=== PATIENT | male | born 1940 | race Caucasian/White ===

== ENCOUNTER → 2018-11-08 | Outpatient (CLI) | payer MEDICARE | END | disposition home or self-care (01) | LOC: PLD 08:09 → LAB SHORT 08:09 | DX: L57.0 Actinic keratosis (principal) | CPT/HCPCS: 88305 ==

== ENCOUNTER 2019-02-22 13:48 | Observation (INO) | payer OTHER ==
[~2019-02-22] VITALS: Ht 172.7 cm; Wt 64.6 kg
[2019-02-22] MEDS ORDERED: DILTIAZEM HCL PO (13:59)
[2019-02-22] MEDS ORDERED: DIGOX125 MCG PO (14:00)
[2019-02-22] MEDS ORDERED: ATOR20 PO (14:00)
[2019-02-22] MEDS ORDERED: HYDCHL25 PO (14:01)
[2019-02-22] MEDS ORDERED: LISI20 PO (14:01)
[2019-02-22] MEDS ORDERED: WARF5 PO (14:02)
[2019-02-22 14:13] LABS: BASOPHILS ABSOLUTE AUTO 0.02 K/mm3 (0.00-0.23); BASOPHILS PERCENT AUTO 0 % (0-2); EOSINOPHILS ABSOLUTE AUTO 0.02 K/mm3 (0.00-0.68); EOSINOPHILS PERCENT AUTO 0 % (0-6); Hematocrit 41.3 % (37.0-53.0); Hemoglobin 14.4 g/dL (13.5-17.5); IMMATURE GRAN ABSOLUTE AUTO 0.04 K/mm3 (0.00-0.10); IMMATURE GRAN PERCENT AUTO 0 % (0-1); LYMPHOCYTES ABSOLUTE AUTO 0.82 K/mm3 (0.84-5.20); LYMPHOCYTES PERCENT AUTO 7 % (21-46); MONOCYTES ABSOLUTE AUTO 0.95 K/mm3 (0.16-1.47); MONOCYTES PERCENT AUTO 8 % (4-13); Mean Corpuscular HGB Conc 34.9 g/dL (31.5-36.5); Mean Corpuscular Volume 97 fL (80-100); Mean Platelet Volume 9.3 fL (9.1-12.4); NEUTROPHILS ABSOLUTE AUTO 9.84 K/mm3 (1.96-9.15); NEUTROPHILS PERCENT AUTO 84 % (41-73); Platelet Count 240 K/mm3 (150-400); RDW Standard Deviation 46.4 fL (35.1-46.3); Red Blood Cell Count 4.24 M/mm3 (4.30-5.90); White Blood Cell Count 11.69 K/mm3 (4.00-11.30)
[2019-02-22 14:31] LABS: International Normalized Ratio 2.29; Prothrombin Time Results 22.5 Sec (9.7-11.5)
[2019-02-22 14:39] LABS: Alanine Aminotransfer (ALT/SGP 25 U/L (12-78); Albumin, Blood 3.8 g/dL (3.4-5.0); Albumin/Globulin Ratio 1.2 (0.8-1.8); Alk Phos 64 U/L (50-136); Anion Gap 7 mmol/L (6-16); Aspartate Aminotrans (AST/SGOT 23 U/L (12-37); Bilirubin, Total 0.8 mg/dL (0.1-1.0); Blood Urea Nitrogen 19 mg/dL (8-24); Bun/Creatinine Ratio 15.2 (12.0-20.0); CO2, Blood 27 mmol/L (21-32); Chloride, Blood 99 mmol/L (98-108); Creatinine, Blood 1.25 mg/dL (0.60-1.20); Globulin, Blood 3.3 g/dL (2.2-4.0); Glomerular Filtration Rate 59 (60-); Glucose, Blood 104 mg/dL (70-99); Potassium, Blood 4.2 mmol/L (3.5-5.5); Sodium, Blood 133 mmol/L (136-145); Total Protein, Blood 7.1 g/dL (6.4-8.2); Troponin I <0.015 ng/mL (0.000-0.040)
[2019-02-22 15:37] LABS: Digoxin (Lanoxin) 0.82 ug/mL (0.80-2.00)
[2019-02-22 17:18] LABS: Influenza A Negative (NEGATIVE); Influenza B Negative (NEGATIVE)
[2019-02-22] MEDS ORDERED: WARF2.5 PO (17:54)
[2019-02-22] MEDS ORDERED: THERA-D2000 UNIT PO (17:56)
[2019-02-22] MEDS ORDERED: THERA1 EACH PO (17:56)
[2019-02-22] MEDS ORDERED: [UNRECOGNIZED DRUG - OTHER] PO (17:57)
--- NOTE | 2019-02-22 19:52 | NUR ---
1835 RECEIVED PT TO RM 341 VIA W/C FROM ER. PT A&O, ABLE TO TX SELF TO BED. RECEIVED REPORT FROM BIBI GARCIA; PT SENT TO ER FROM [facility]. PT TO [place] FOR SYCOPE X2 IN THE SHOWER. PER REPORT, PT WITH ABRAISION TO L SHOULDER AND R SCAPULA. ADMITTED FOR OBS OVERNITE. PT ON COUMADIN FOR A-FIB; PHARMACY MANAGING COUMADIN. PT REPORTING SORE THROAT, SWOLLEN GLANDS. FLU SWAB DONE IN ER; NEG PER REPORT. REPORT GIVEN TO ONCOMING RN. CALL LT IN REACH. BED ALARM ON FOR SAFETY.
[2019-02-23 03:15] LABS: BASOPHILS ABSOLUTE AUTO 0.01 K/mm3 (0.00-0.23); BASOPHILS PERCENT AUTO 0 % (0-2); EOSINOPHILS ABSOLUTE AUTO 0.17 K/mm3 (0.00-0.68); EOSINOPHILS PERCENT AUTO 2 % (0-6); Hematocrit 39.3 % (37.0-53.0); Hemoglobin 13.5 g/dL (13.5-17.5); IMMATURE GRAN ABSOLUTE AUTO 0.02 K/mm3 (0.00-0.10); IMMATURE GRAN PERCENT AUTO 0 % (0-1); LYMPHOCYTES ABSOLUTE AUTO 1.58 K/mm3 (0.84-5.20); LYMPHOCYTES PERCENT AUTO 17 % (21-46); MONOCYTES ABSOLUTE AUTO 0.98 K/mm3 (0.16-1.47); MONOCYTES PERCENT AUTO 11 % (4-13); Mean Corpuscular HGB 33.6 pg (26.0-34.0); Mean Corpuscular HGB Conc 34.4 g/dL (31.5-36.5); Mean Corpuscular Volume 98 fL (80-100); Mean Platelet Volume 9.3 fL (9.1-12.4); NEUTROPHILS ABSOLUTE AUTO 6.42 K/mm3 (1.96-9.15); NEUTROPHILS PERCENT AUTO 70 % (41-73); Platelet Count 210 K/mm3 (150-400); RDW Standard Deviation 46.6 fL (35.1-46.3); Red Blood Cell Count 4.02 M/mm3 (4.30-5.90); White Blood Cell Count 9.18 K/mm3 (4.00-11.30)
[2019-02-23 03:29] LABS: Bun/Creatinine Ratio 18.3 (12.0-20.0); Calcium, Blood 8.4 mg/dL (8.5-10.1); Creatinine, Blood 1.26 mg/dL (0.60-1.20); Potassium, Blood 4.2 mmol/L (3.5-5.5)
[2019-02-23 03:30] LABS: International Normalized Ratio 2.42; Prothrombin Time Results 23.7 Sec (9.7-11.5)
--- NOTE | 2019-02-23 04:44 | NUR ---
STATOR CONNECTOR SUMMARY A/O X4. PLEASANT AND COOPERATIVE. FWW WITH STANDBY ASSIST WITH STEADY GAIT. DENIES PAIN, NAUSEA AND DIZZINIESS. AT BEDSIDE WITH PT IN THE BEGINNING OF SHIFT AND LEFT LATER IN THE NIGHT. BED ALARM ON. CALL LIGHT WITHIN REACH. NS RUNNING AT 75ML/HR. NEGATIVE TROPONIN X3. VITALS STABLE AND SLEPT WELL TONIGHT.
--- NOTE | 2019-02-23 14:37 | NUR ---
Echocardiogram completed.
[2019-02-24 05:39] LABS: International Normalized Ratio 2.75; Prothrombin Time Results 26.6 Sec (9.7-11.5)
--- NOTE | 2019-02-24 09:15 | NUR ---
PT PLEASANT COOP A/O STATES EAGER TO GO HOME. DENIES PAIN. H/R IRREGULAR. LOUD MURMER NOTED. PER TELE. AFIB AT 75, SEE SEPARATE NOTE ON LAST LIDYA RATES. PRESENT IN LOW 50'S WHILE ASLEEP. LUNGS CLEAR, RESP EASY, UNLABORED, ON R.A. BT X4 LAST BM LAST NITE. VOIDS PER BATHROOM, INDEPENDANT. BED IN LOW POSITION, CALL LITE IN REACH, CALLS APPROP
--- NOTE | 2019-02-24 10:51 | NUR ---
PT STATES DIGOXINE NOT TO BE 0.25 MG, SHOULD BE 0.[address] MARLOW. SORAIDA GIVE 0.125 AND CHANGE ORDER TO HOME DOSE. DONE
--- NOTE | 2019-02-24 10:58 | NUR ---
CALLED TELE. RATES DROPPED FROM MID 70'S YESTERDAY TO: 66 AT 21:30, 58 AT 23:45, 52 AT 24:15 HELD IN LOW 50'S LAST NITE UNTIL 6AM AT 54 THEN BACK UP AT 7AM AT 70. MAINTAINS AFIB T/OUT. CALLED DR MARLOW. GAVE ABOVE INFO. ALSO DISCUSSED PT STATES DOSE DIG SUPPOSED TO BE 0.125 NOT 0.25. DOSE CHANGE TO HOME DOSE.
[2019-02-24] MEDS ORDERED: Diltiazem ER60 MG PO (15:49)
--- NOTE | 2019-02-24 16:19 | NUR ---
IV PULLED INTACT. TELE REMOVED. DISCHARGE REVIEWED WITH PT. PT VERBALIZED UNDERSTANDING. HE READY TO D.C WHEN COMES BACK.
--- NOTE | 2019-02-24 17:56 | NUR ---
PT TO ROOM. WALKED OUT DOOR AT 2308
== END 2019-02-24 17:40 | disposition home or self-care (01) ==
LOC: ER 13:48 → MEDS 13:49 → ER 18:24 → MEDS 18:31
PROVIDERS: Emergency Medicine; Physician Assistant; ADMIT Internal Medicine
DX: R55 Syncope and collapse (principal); I35.0 Nonrheumatic aortic (valve) stenosis; I10 Essential (primary) hypertension; E78.5 Hyperlipidemia, unspecified; I48.20 Chronic atrial fibrillation, unspecified; E78.00 Pure hypercholesterolemia, unspecified; Z79.01 Long term (current) use of anticoagulants; Z79.899 Other long term (current) drug therapy
CPT/HCPCS: 36415; 71046; 80048; 80053; 80162; 84484; 85025; 85610; 87804; 93005; 93010; 93306; 96360; 96361; 97161; 97165; 97530; 99285-25; G0378; J7030

== ENCOUNTER 2019-05-20 06:22 | Day surgery (SDC) | payer OTHER ==
[~2019-05-20] VITALS: Ht 175.3 cm; Wt 68.0 kg
[~2019-05-20 06:22] MED LIST: ATOR20 PO; DIGOX125 MCG PO; DILTIAZEM HCL PO; Diltiazem ER60 MG PO; HYDCHL25 PO; LISI20 PO; THERA-D2000 UNIT PO; THERA1 EACH PO; WARF2.5 PO; WARF5 PO; [UNRECOGNIZED DRUG - OTHER] PO
[2019-05-20] MEDS ORDERED: THERA1 EACH PO (07:24)
[2019-05-20] MEDS ORDERED: Oyster Shell C500 MG PO (07:25)
[2019-05-20] MEDS ORDERED: VITAMIN D-40010 MC1 PO (07:27)
--- NOTE | 2019-05-20 12:27 | NUR ---
DISCHARGE GONE OVER WITH AND PT, BOTH VERBALIZE UNDERSTANDING OF INSTRUCTIONS. SALINE LOCK OUT WITH CATHETER INTACT. TR BAND OFF, NO BLEEDING NOTED. CLOTH DOT PLACED OVER RADIAL SITE. PT TO PRIVATE VEHICLE PER W/C.
== END 2019-05-20 12:00 | disposition home or self-care (01) ==
LOC: MHTC 06:22
PROC: B2111ZZ Fluoroscopy of Multiple Coronary Arteries using Low Osmolar Contrast (ICD-10-PCS; principal; 2019-05-20)
PROC: 4A023N7 Measurement of Cardiac Sampling and Pressure, Left Heart, Percutaneous Approach (ICD-10-PCS; principal; 2019-05-20)
DX: I35.0 Nonrheumatic aortic (valve) stenosis (principal); I25.10 Atherosclerotic heart disease of native coronary artery without angina pectoris; Q23.1 Congenital insufficiency of aortic valve; I10 Essential (primary) hypertension; I48.19 Other persistent atrial fibrillation; E78.5 Hyperlipidemia, unspecified; Z79.01 Long term (current) use of anticoagulants; Z79.899 Other long term (current) drug therapy; Z88.2 Allergy status to sulfonamides; Z88.1 Allergy status to other antibiotic agents; Z88.3 Allergy status to other anti-infective agents
CPT/HCPCS: 76937; 93005; 93010; 93454; 99152; 99153; C1769; C1894; J1644; J2250; J3010; J7030; Q9967

== ENCOUNTER 2020-01-03 17:27 | Inpatient (IN) | payer OTHER, MEDICARE ==
[~2020-01-03] VITALS: Ht 170.2 cm; Wt 66.9 kg
[~2020-01-03 17:27] MED LIST changes: +Oyster Shell C500 MG PO; +VITAMIN D-40010 MC1 PO
[2020-01-03] MEDS ORDERED: Hair, Skin & N1 EACH PO (18:17)
[2020-01-03] MEDS ORDERED: ATOR80 PO (18:17)
[2020-01-03] MEDS ORDERED: Aspirin EC81 MG PO (18:17)
[2020-01-03] MEDS ORDERED: DOCU100 PO (18:18)
[2020-01-03] MEDS ORDERED: Vitamin D2000 UNIT PO (18:18)
[2020-01-03] MEDS ORDERED: POTCHL20ER PO (18:18)
[2020-01-03] MEDS ORDERED: FURO40 PO (18:18)
[2020-01-03 18:19] LABS: BASOPHILS ABSOLUTE AUTO 0.04 K/mm3 (0.00-0.23); BASOPHILS PERCENT AUTO 0 % (0-2); EOSINOPHILS ABSOLUTE AUTO 0.07 K/mm3 (0.00-0.68); EOSINOPHILS PERCENT AUTO 0 % (0-6); Hematocrit 28.8 % (37.0-53.0); Hemoglobin 9.1 g/dL (13.5-17.5); IMMATURE GRAN ABSOLUTE AUTO 0.15 K/mm3 (0.00-0.10); IMMATURE GRAN PERCENT AUTO 1 % (0-1); LYMPHOCYTES ABSOLUTE AUTO 0.85 K/mm3 (0.84-5.20); LYMPHOCYTES PERCENT AUTO 5 % (21-46); MONOCYTES ABSOLUTE AUTO 0.93 K/mm3 (0.16-1.47); MONOCYTES PERCENT AUTO 5 % (4-13); Mean Corpuscular HGB 32.4 pg (26.0-34.0); Mean Corpuscular HGB Conc 31.6 g/dL (31.5-36.5); Mean Corpuscular Volume 103 fL (80-100); Mean Platelet Volume 9.2 fL (9.1-12.4); NEUTROPHILS PERCENT AUTO 88 % (41-73); Platelet Count 370 K/mm3 (150-400); RDW Coefficient Variation 15.2 % (11.7-14.2); RDW Standard Deviation 56.9 fL (35.1-46.3); Red Blood Cell Count 2.81 M/mm3 (4.30-5.90); White Blood Cell Count 17.44 K/mm3 (4.00-11.30)
[2020-01-03] MEDS ORDERED: MIRALAX17 GM PO (18:19)
[2020-01-03] MEDS ORDERED: WARF5 PO ×2 (18:20)
[2020-01-03 18:41] LABS: Alanine Aminotransfer (ALT/SGP 55 U/L (12-78); Albumin, Blood 2.9 g/dL (3.4-5.0); Albumin/Globulin Ratio 0.9 (0.8-1.8); Alk Phos 126 U/L (50-136); Anion Gap 6 mmol/L (6-16); Aspartate Aminotrans (AST/SGOT 40 U/L (12-37); Bilirubin, Total 0.3 mg/dL (0.1-1.0); Blood Urea Nitrogen 19 mg/dL (8-24); Bun/Creatinine Ratio 20.3 (12.0-20.0); CO2, Blood 26 mmol/L (21-32); Calcium, Blood 8.3 mg/dL (8.5-10.1); Chloride, Blood 105 mmol/L (98-108); Creatinine, Blood 0.93 mg/dL (0.60-1.20); Globulin, Blood 3.4 g/dL (2.2-4.0); Glomerular Filtration Rate >60 (60-); Glucose, Blood 114 mg/dL (70-99); Potassium, Blood 4.1 mmol/L (3.5-5.5); Sodium, Blood 137 mmol/L (136-145); Total Protein, Blood 6.3 g/dL (6.4-8.2); Troponin I 0.196 ng/mL (0.000-0.040)
[2020-01-03 19:03] LABS: International Normalized Ratio 2.28; Prothrombin Time Results 23.3 Sec (9.7-11.5)
[2020-01-03 19:16] LABS: Digoxin (Lanoxin) 0.14 ug/mL (0.80-2.00)
--- NOTE | 2020-01-04 00:30 | NUR ---
PT ADMITTED TO ROOM ICU 12 UNDER PCU STATUS AT 2338. PT ABLE TO STAND AND TRANSFER HIMSELF WITH ASSIST TO HELP HIM GET HIS FEET UP IN BED. PT ALERT AND ORIENTED. VERY GOOD HISTORIAN. PLEASANT AND COOPERATIVE WITH CARE AND ASSESSMENT. NO COMPLAINTS OF CHEST PAIN OR PRESSURE. PT HAS HEALING INCISIONS TO CHEST-STERNAL, AND CHEST AT LEFT UPPER - PACER, AND ABDOMINAL INCISION HEALING. WILL REVIEW CHART AND PLAN OF CARE FOR THIS PT.
[2020-01-04 03:23] LABS: BASOPHILS ABSOLUTE AUTO 0.03 K/mm3 (0.00-0.23); BASOPHILS PERCENT AUTO 0 % (0-2); EOSINOPHILS PERCENT AUTO 1 % (0-6); Hematocrit 26.8 % (37.0-53.0); Hemoglobin 8.6 g/dL (13.5-17.5); IMMATURE GRAN ABSOLUTE AUTO 0.11 K/mm3 (0.00-0.10); IMMATURE GRAN PERCENT AUTO 1 % (0-1); LYMPHOCYTES ABSOLUTE AUTO 1.66 K/mm3 (0.84-5.20); LYMPHOCYTES PERCENT AUTO 10 % (21-46); MONOCYTES ABSOLUTE AUTO 1.01 K/mm3 (0.16-1.47); MONOCYTES PERCENT AUTO 6 % (4-13); Mean Corpuscular HGB Conc 32.1 g/dL (31.5-36.5); Mean Corpuscular Volume 103 fL (80-100); Mean Platelet Volume 9.3 fL (9.1-12.4); NEUTROPHILS ABSOLUTE AUTO 14.16 K/mm3 (1.96-9.15); NEUTROPHILS PERCENT AUTO 83 % (41-73); Platelet Count 380 K/mm3 (150-400); RDW Coefficient Variation 15.4 % (11.7-14.2); RDW Standard Deviation 56.5 fL (35.1-46.3); Red Blood Cell Count 2.61 M/mm3 (4.30-5.90); White Blood Cell Count 17.07 K/mm3 (4.00-11.30)
[2020-01-04 03:37] LABS: International Normalized Ratio 2.33; Prothrombin Time Results 23.8 Sec (9.7-11.5)
[2020-01-04 03:40] LABS: Anion Gap 4 mmol/L (6-16); Blood Urea Nitrogen 26 mg/dL (8-24); CO2, Blood 30 mmol/L (21-32); Calcium, Blood 8.2 mg/dL (8.5-10.1); Chloride, Blood 103 mmol/L (98-108); Glomerular Filtration Rate >60 (60-); Glucose, Blood 114 mg/dL (70-99); Potassium, Blood 3.7 mmol/L (3.5-5.5); Sodium, Blood 137 mmol/L (136-145)
--- NOTE | 2020-01-04 04:28 | NUR ---
PT HAS BEEN ABLE TO STAND AT SIDE OF BED AND VOID Q.S. PT AGAIN NEEDS SOME ASSIST GETTING HIS LEGS UP INTO BED. HAS BEEN ABLE TO MOVE ABOUT IN BED. CARDIAC RHYTHM REMAINS 100 PERCENT VENTRICALLY PACED. REMAINS ON ROOM AIR MAINTAINS > 90 PERCENT SATURATION. WILL CONTINUE TO MONITOR PT.
--- NOTE | 2020-01-04 07:19 | NUR ---
PT HAS NO COMPLAINTS OF CHEST PAIN OR PRESSURE. HAS BEEN ABLE TO VOID Q.S. WITH MINIMINAL ASSIST. HAS BEEN ABLE TO REST THIS NIGHT. REPORT GIVEN TO ONCOMING RN.
--- NOTE | 2020-01-04 09:39 | NUR ---
ECHOCARDIOGRAM COMPLETED
--- NOTE | 2020-01-04 10:13 | NUR ---
AM NOTE... ASSUMED CARE OF PT APROX 0700, PT IS A&Ox4 AND SBA TO IND IN THE ROOM. PT WAS ADMITTED FOR CHF EXAC. VS STABLE. L/S CLEAR T/O ON RA. BT PRESENT AND NORMOACTIVE x4 ABD IS SOFT AND NONTENDER TO PALP. PT HAS 3+ PITTING EDEMA TO BLE. PT HAD OPEN HEART SURGERY ON 12/21, HE ALSO HAD MULTIPLE VALVES REPLACED PER TAVR, A PACEMAKER PLACED TO THE LEFT UPPER CHEST WALL CLOSE TO THE SHOULDER AND A CVA W/THROMBECTOMY. PT CURRENTLY DENIES ANY CHEST PAIN/PRESSURE N/V OR SOB. PT IS 100% V PACED IN THE 70'S. PT IS ABLE TO STAND AND VOID USING THE URINAL. CALL LIGHT IN REACH WILL CONTINUE TO MONITOR.
--- NOTE | 2020-01-04 16:31 | NUR ---
[facility]IAL [facility] CARE VISIT - Brief visit with pt today. He was admitted after being referred from [facility] for CHF. 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 Today's visit was primarily to reassure him that his was ok. During Pelletizer Tender visit he expressed concern and was worried that she was not OK. I called his , Marge, and spoke to her by phone. She stated she was overwhelmed yesterday in trying to navigate between the [place] and [facility] facilities and had a "melt down". She is doing much better today she said and asked that I tell her she was home getting ready to take care of him again when he was discharged. She had a good nights rest, a good meal, was doing laundry and would be in later to visit. I asked that she bring his cell phone in per his request and she was planning to do this. I passed on all messages to pt and he was very relieved. He denies pain or needs at this time once he knew his was ok. He is no longer ICU status but still in ICU at this time. I planned with him to visit tomorrow. I plan to address advanced care planning and discuss code status if he would like to along with s/s assessment and find out if further teaching on CHF indicated. CM note reviewed and it appears they are also working on additional CHF teaching & f/u thru care continuium.
--- NOTE | 2020-01-04 18:02 | NUR ---
SHIFT SUMMARY... NO ACUTE NEGATIVE CHANGES NOTED THIS SHIFT. PT'S VS STABLE T/O SHIFT. PT HAS BEEN SBA TO THE TOILET TO HAVE A BM AND USES THE URINAL INDEPENDENTLY AT THE BEDSIDE. CALL LIGHT IN REACH WILL CONTINUE TO MONITOR UNTIL REPORT IS GIVEN TO ONCOMING RN.
[2020-01-05 06:02] LABS: International Normalized Ratio 3.94
[2020-01-05 06:27] LABS: Blood Urea Nitrogen 44 mg/dL (8-24); Bun/Creatinine Ratio 45.3 (12.0-20.0); CO2, Blood 30 mmol/L (21-32); Calcium, Blood 7.8 mg/dL (8.5-10.1); Creatinine, Blood 0.97 mg/dL (0.60-1.20); Glomerular Filtration Rate >60 (60-); Glucose, Blood 117 mg/dL (70-99); Sodium, Blood 137 mmol/L (136-145)
[2020-01-05 06:31] LABS: Chloride, Blood 103 mmol/L (98-108)
--- NOTE | 2020-01-05 08:00 | NUR ---
PT LAYING IN BED AWAKE A/OX3, PLEASANT AND COOPERATIVE WITH CARE, FOLLOWS COMMANDS WELL, DENIES PAIN, STATES HE HAD A GOOD NIGHT, LUNGS ARE CLEAR DIM IN BASES, RESP EVEN AND UNLABORED, NO COUGH NOTED, HRR, TEL EIN PLACE RUNNING 100% PACED RHYTHM, 2+ LE EDEMA NOTED, PPP+2, CAP REFILL <3SEC, VS STABLE, AFEBRILE, IV SITE IS CLEAR AND PATENT, BTX4, ABD FLAT SOFT NONTENDER, VOIDS WITHOUT DIFF, SKIN HAS A MIDLINE CHEST INSICION THAT IS HEALING WELL, STILL A BIT PINK, MAEW, STATES HE HAS GOT A BIT LIGHT HEADED WITH GETTING UP, BARRETT, CALL LIGHT IN REACH.
[2020-01-05 10:34] LABS: Anion Gap 4 mmol/L (6-16)
[2020-01-05] MEDS ORDERED: FURO40 PO (12:48)
--- NOTE | 2020-01-05 14:29 | NUR ---
pt has been discharged to home, went in to give him his instructions, he just got back from the bathroom, and is light headed, and vomiting. asked leakage tester to get a set of orthostatics, got some zofran for the nausia, by the time I got back to room the nausia had passed and didn't want the zofran. states she's not comfortable taking him home like this, called , he came to room and saw orthos are positive and cancelled discharge for now. charge nurse notified. call light in reach.
--- NOTE | 2020-01-05 16:32 | NUR ---
Attempted to see pt for advanced care planning. EMR reviewed and spoke with RN. Upon entering room pt requested assist getting up to BR to void. He had recently been dizzy and nauseated due to orthostatic hypotention. I assisted pt to sitting at the edge of the bed. Initially he denied feeling dizzy but after a few minutes was not so sure. We agreed he would use the urinal at the side of the bed this time. MERCERIZING RANGE CONTROLLER arrived at that time and further assisted pt. While I was standing near pt at side of bed for observation, I did some CHF teaching on fluid intake, fluid restrictions if ordered (none at this time) and s/s of low BP and possible causes. I encouraged pt to have some sips of water this afternoon to assist with cautious, incremental increase in fluid volume in vascular system to minimize orthostatic hypotention. verbalized discomfort taking pt home while he is having these "episodes". Plan to follow up tomorrow to discuss advanced care planning if pt/ receptive. We do not have an AD or POLST in his EMR at this time. I am unsure if the out of area hospitals where pt had his recent surgeries have AD on file but we will ask pt tomorrow if they have completed an AD or POLST recently also.
--- NOTE | 2020-01-05 18:03 | NUR ---
pt doing ok, last time he needed to void he stood at the bed and used the urinal instead of walking to the bathroom, no further changes this shift, Dr. Philippe stopped the lasix. call light in reach.
--- NOTE | 2020-01-05 20:20 | NUR ---
ORTHOSTATIC HYPOTENSION AT APPROX. 2100, PT NOTIFIED PCT VIA CALL LIGHT OF NEED TO VOID. PCT ATTEMPTED TO HELP PT SIT ON EDGE OF BED TO USE URINAL PER PT'S REQUEST. PCT CALLED THIS RN INTO ROOM VIA [employer]. THIS RN FOUND PCT HOLDING PT UPRIGHT, SITTING AT EDGE OF BED, PT NON RESPONSIVE TO VERBAL STIMULI. THIS RN AND PCT LAID PT DOWN ON BED. PT BECAME ALERT AND BEGAN VOMITTING SMALL AMOUNTS. RAISED PT'S HEAD OF BED IN BED SO HE COULD VOMIT SAFELY. PT WAS ABLE TO THEN CONVERSE, STATING HE GOT "LIGHTHEADED" WHEN SITTING AT EDGE OF BED. NOTIFIED PT OF BEDREST FOR THE TIME BEING. VSS. PT DENIES FURTHER NAUSEA. DENIED NEED FOR PRN ZOFRAN. WILL CONTINUE TO MONITOR.
[2020-01-06 04:52] LABS: PCO2 Arterial 23.4 mmHg (35-45); PO2 Arterial 95.3 mmHg (80-100); pH Blood Arterial 7.57 (7.35-7.45)
[2020-01-06 05:18] LABS: Bun/Creatinine Ratio 52.3 (12.0-20.0); Creatinine, Blood 1.28 mg/dL (0.60-1.20); Potassium, Blood 4.5 mmol/L (3.5-5.5)
[2020-01-06 05:23] LABS: BASOPHILS ABSOLUTE AUTO 0.02 K/mm3 (0.00-0.23); BASOPHILS PERCENT AUTO 0 % (0-2); EOSINOPHILS ABSOLUTE AUTO 0.01 K/mm3 (0.00-0.68); EOSINOPHILS PERCENT AUTO 0 % (0-6); IMMATURE GRAN ABSOLUTE AUTO 0.24 K/mm3 (0.00-0.10); IMMATURE GRAN PERCENT AUTO 1 % (0-1); LYMPHOCYTES ABSOLUTE AUTO 1.33 K/mm3 (0.84-5.20); LYMPHOCYTES PERCENT AUTO 8 % (21-46); MONOCYTES ABSOLUTE AUTO 0.66 K/mm3 (0.16-1.47); MONOCYTES PERCENT AUTO 4 % (4-13); Mean Corpuscular HGB 33.1 pg (26.0-34.0); Mean Corpuscular HGB Conc 31.3 g/dL (31.5-36.5); Mean Corpuscular Volume 106 fL (80-100); Mean Platelet Volume 9.9 fL (9.1-12.4); NEUTROPHILS ABSOLUTE AUTO 15.18 K/mm3 (1.96-9.15); NEUTROPHILS PERCENT AUTO 87 % (41-73); Platelet Count 336 K/mm3 (150-400); RDW Coefficient Variation 15.9 % (11.7-14.2); RDW Standard Deviation 59.9 fL (35.1-46.3); Red Blood Cell Count 1.24 M/mm3 (4.30-5.90); White Blood Cell Count 17.44 K/mm3 (4.00-11.30)
[2020-01-06 05:24] LABS: Hematocrit 13.1 % (37.0-53.0); Hemoglobin 4.1 g/dL (13.5-17.5)
[2020-01-06 05:34] LABS: International Normalized Ratio 8.32
--- NOTE | 2020-01-06 06:28 | NUR ---
PT NEURO CHANGE / TRANSFER TO ICU THIS RN WENT TO PT'S ROOM TO TAKE ROUTINE VITALS @ APPROX 0420. THIS RN FOUND PT SATURATED IN URINE AND NOT VERBALLY RESPONSIVE. PT WOULD GRUNT/MAKE NOISE IN RESPONSE TO QUESTIONS. THIS RN CALLED RADHA RODRIGUEZ IN PT ROOM TO ASSIST. BOTH RN'S ATTEMPTED TO GET A VERBAL RESPONSE FROM THE PT. PT ONLY MOANING "MHMM, MHMM." PT DID THEN EVENTUALLY MUMBLE HIS NAME AND BUT WOULD NOT OPEN EYES OR FOLLOW COMMANDS. PT'S LEFT ARM APPEARED RIGID, CROSSED ON BODY. THIS IS A NEURO CHANGE FROM BEGINNING OF SHIFT, CALLED ICU CHARGE NURSE, TO PT'S ROOM TO HELP ASSESS. NOTIFIED MD DE LA O OF PT CHANGED. MD DE LA O W/ ORDER FOR STAT ABG, HEAD CT, AND CHEST CT. LAB IN ROOM TO DRAW BLOOD. PT'S H&H RESULTS CAME BACK LOW, NOTIFIED W/ NEW ORDER FOR 2 UNITS PRBC. PT CONTINUES TO BE MINIMALLY RESPONSIVE, GRUNTING & MOANING ONLY. BLOOD CONSENT NOTED IN CHART AND PT'S NOTIFIED OF PT CONDITION. BLOOD CURRENTLY INFUSING W/ BP TRENDING DOWN & PT NOW REQUIRING 4L NC INCREASED FROM RA FOR SPO2 > 92%. MD DE LA O TO RM @ APPROX 0600 W/ NEW ORDERS TO TRANSFER TO ICU. WILL GIVE REPORT TO ACCEPTING TRACTOR DISTRIBUTOR & TRANSFER PT BY BED W/ O2 & 1ST UNIT OF BLOOD TRANSFUSING.
[2020-01-06 06:45] LABS: IMMATURE RETIC FRACTION 40.2 % (2.3-16.0); RETIC HGB EQUIVALENT 31.7 pg (28.20-36.60); RETICULOCYTE ABSOLUTE 0.103 M/mm3 (0.0200-0.1100); RETICULOCYTE COUNT PERCENT 8.31 % (0.50-2.50)
[2020-01-06 07:11] LABS: Alanine Aminotransfer (ALT/SGP 31 U/L (12-78); Albumin, Blood 2.1 g/dL (3.4-5.0); Albumin/Globulin Ratio 0.8 (0.8-1.8); Alk Phos 56 U/L (50-136); Aspartate Aminotrans (AST/SGOT 20 U/L (12-37); Bilirubin, Direct <0.1 mg/dL (0.0-0.3); Bilirubin, Indirect Unable to Calculate mg/dL (0.1-0.7); Bilirubin, Total 0.3 mg/dL (0.1-1.0); Globulin, Blood 2.6 g/dL (2.2-4.0); Total Protein, Blood 4.7 g/dL (6.4-8.2)
--- NOTE | 2020-01-06 09:49 | NUR ---
PT WAS BROUGHT OVER FROM PCU THIS AM AT SHIFT CHANGE TO ICU 5. PT WAS INITIALLY UNRESPONSIVE AND PALE. PT NOW, AFTER 2 UNITS OF PRBC'S AND 2 UNITS OF FFP, IS ABLE TO SAY YES TO NAME AND AND ABLE TO CHOCOLATE PRODUCTION MACHINE OPERATOR HANDS ON COMMAND. SKIN TONE IS NOW PINK. BP HAS IMPROVED. LS FINE CRACKLES IN BASES. DR. PALOMINO HAS BEEN IN TO SEE PT A COUPLE TIMES THIS AM, HE WILL BE PUTTING ORDERS IN FOR LASIX. HE WILL ALSO BE IN CONTACT WITH MD'S FROM [facility] THAT DID PT'S TAVR AND OPEN HEART. ATTEMPTED TO CALL CONSULT TO DR. FIELDS BUT BOTH MD'S FROM THAT GROUP ARE OUT OF TOWN. DR. PALOMINO SAYS HE WILL PROBABLEY BE IN CONTACT WITH DR. CLAIRE IF POSSIBLE. AT BEDSIDE.
[2020-01-06 10:27] LABS: Hematocrit 16.5 % (37.0-53.0); Hemoglobin 5.6 g/dL (13.5-17.5)
[2020-01-06 10:49] LABS: Bilirubin, Direct 0.2 mg/dL (0.0-0.3); Bilirubin, Indirect 0.6 mg/dL (0.1-0.7); Bilirubin, Total 0.8 mg/dL (0.1-1.0)
--- NOTE | 2020-01-06 11:34 | NUR ---
CALLED DR. PALOMINO BACK RE: CONSULT FOR DR. CLAIRE (LEFT MESSAGE WITH OFFICE AND ON CELL PHONE) HE IS OUT OF OFFICE TODAY. DR. PALOMINO HAS BEEN IN CONTACT WITH [facility]. WILL BE GIVING 2 MORE UNITS OF PRBC'S. DR. PALOMINO IS AWARE OF LACTIC ACID WELL.
[2020-01-06 17:12] LABS: Hematocrit 21.5 % (37.0-53.0); Hemoglobin 7.3 g/dL (13.5-17.5)
[2020-01-06 17:30] LABS: International Normalized Ratio 1.69; Prothrombin Time Results 17.6 Sec (9.7-11.5)
--- NOTE | 2020-01-06 19:00 | NUR ---
ASSUMED CARE OF PT, BEDSIDE REPORT RECEIVED, PT IS RESTING QUIETLY RECLINING IN BED WITH SPOUSE AT BEDSIDE. PT DENIES CP/PRESSURE, DENIES SOB/DYSPNEA, DENIES N/V, DENIES NUMBNESS/TINGLING. HE IS ALERT AND ORIENTED ALTHOUGH DOES REPORT THAT HE IS FEELING SLEEPY AND IS HOPEFUL TO REST WELL THIS SHIFT, PLAN OF CARE AND HOURLY ROUNDING IS DISCUSSED WITH PATIENT AND SPOUSE, UNDERSTANDING IS VERBALIZED. PT IS SPEAKING IN FULL SENTENCES WITH SOFT VOICE QUALITY, SATS ARE MAINTAINING HIGH 90S WITH OXYGEN VIA NASAL CANNULA AT 2 L/MIN, LUNGS ARE CLEAR THROUGHOUT, BASES DIM WITH NORMAL INSPIRATION HOWEVER CLEAR WITH GOOD AIR MOVEMENT WITH DEEP INSPIRATION, WILL PROVIDE WITH INCENTIVE SPIROMETER THIS SHIFT AND INSTRUCT ON USE. HEART RATE/RHYTHM IS NOTED PACED AT 74 AT THIS TIME, PRESSURES MAINTAINING, IMPROVED PER OFFGOING RN, SKIN COLOR/COND IS NOTED PWD, EDEMA CONTINUES TO BILAT LOWER EXTREMITIES, NOTED TO HAVE COUMADIN HELD SECONDARY TO BLEEDING, WILL REQUEST SCD ORDERS FROM HOSPITALIST. HYPERACTIVE BOWEL TONES ARE NOTED, PT HAD LARGE LOOSE DARK BLACK/MAROON BOWEL MOVEMENT JUST PRIOR TO BEDSIDE REPORT, REPORTED SECOND SINCE 1800, WILL MONITOR, ABD IS SOFT, NONTENDER TO LIGHT PALPATION. PT DOES VOID CLEAR YELLOW URINE IN URINAL WITHOUT DIFFICULTY PER OFFGOING RN, WILL MONITOR. IV ACCESS NOTED TO RIGHT ARM X 2 SEE VASCULAR ACCESS DOCUMENTATION. INCISIONS NOTED TO MIDLINE CHEST, LEFT UPPER CHEST, EPIGASTRIC AREA, SITES ARE ALL OPEN TO AIR WITHOUT REDNESS, SWELLING, OR DRAINAGE, SMALL AMOUNTS OF BRUISING ARE NOTED. PT DID HAVE GROIN ACCESS FOR TAVR TO RIGHT GROIN, SITE CONTINUES STABLE OF THIS TIME, WILL MONITOR.
--- NOTE | 2020-01-06 19:18 | NUR ---
SUMMARY PT RESTING IN BED. PT HAD DONE WELL ALL DAY AFTER RECEIVING 4 UNITS PRBC'S, 2 UNITS FFP, AND VITAMIN K. VITAL SIGNS REMAINED STABLE AND MENTATION CLEARED AND ABLE TO VOCALIZE NEEDS. PT IS STILL WEAK T/O BUT ABLE TO LIFT HIPS AND FOLLOW COMMANDS. STARTING THIS EVENING AT 1800 PT HAD 2 LARGE LOOSE TARRY BM. CALLED DR. PALOMINO. NEW ORDERS FOR GI CONSULT AND PROTONIX, BUT THERE IS NO GI ON FOR THE NEXT WEEK. LET DR. PALOMINO KNOW THIS AND HE WANTS TO SEE WHAT THE 2200 LABS LOOK LIKE BEFORE DECIDING IF PT NEEDS TRANSFERED. VS REMAIN STABLE. REPORT GIVEN TO NIGHT RN. IS GOING HOME FOR THE NIGHT. CALL LIGHT IN REACH.
[2020-01-06 22:11] LABS: Hematocrit 18.9 % (37.0-53.0); Hemoglobin 6.7 g/dL (13.5-17.5)
[2020-01-07 00:24] LABS: International Normalized Ratio 1.55; Prothrombin Time Results 16.2 Sec (9.7-11.5)
[2020-01-07 04:22] LABS: Hematocrit 22.2 % (37.0-53.0); Hemoglobin 7.7 g/dL (13.5-17.5); Mean Corpuscular HGB 31.4 pg (26.0-34.0); Mean Corpuscular HGB Conc 34.7 g/dL (31.5-36.5); Mean Platelet Volume 10.1 fL (9.1-12.4); NRBC ABSOLUTE 0.09 K/mm3 (0.00-0.02); NRBC Auto 0.5 /100 WBC (0.0-0.2); Platelet Count 167 K/mm3 (150-400); RDW Coefficient Variation 14.9 % (11.7-14.2); RDW Standard Deviation 45.5 fL (35.1-46.3); Red Blood Cell Count 2.45 M/mm3 (4.30-5.90); White Blood Cell Count 17.71 K/mm3 (4.00-11.30)
[2020-01-07 04:28] LABS: Mean Corpuscular Volume 91 fL (80-100)
[2020-01-07 04:38] LABS: International Normalized Ratio 1.57; Prothrombin Time Results 16.4 Sec (9.7-11.5)
[2020-01-07 04:45] LABS: Anion Gap 6 mmol/L (6-16); Blood Urea Nitrogen 78 mg/dL (8-24); Bun/Creatinine Ratio 63.9 (12.0-20.0); CO2, Blood 29 mmol/L (21-32); Calcium, Blood 7.4 mg/dL (8.5-10.1); Chloride, Blood 108 mmol/L (98-108); Creatinine, Blood 1.22 mg/dL (0.60-1.20); Glomerular Filtration Rate >60 (60-); Glucose, Blood 125 mg/dL (70-99); Potassium, Blood 3.7 mmol/L (3.5-5.5); Sodium, Blood 143 mmol/L (136-145)
--- NOTE | 2020-01-07 06:09 | NUR ---
PT FREQUENTLY AWAKE THROUGHOUT SHIFT, DENIES PAIN, DENIES CP/PRESSURE, DENIES SOB/DYSPNEA, DENIES NUMBNESS/TINGLING THROUGHOUT NOC. SATS ARE MAINTAINING UPPER 90S ON ROOM AIR, NO VISIBLE INCREASED WORK OF BREATHING THROUGHOUT SHIFT, PT DOES CONTINUE SPEAKING IN FULL SENTENCES, LUNGS REMAIN CLEAR THROUGHOUT. CONTINUES IN PACED RHYTHM, PRESSURES IMPROVED FOLLOWING TRANSFUSION OF 1 UNIT PRBCS THIS SHIFT, EDEMA TO LOWER EXTREMITIES CONTINUES, PT WAS NOTED TO HAVE 8 BEAT RUN OF V-TACH AT 0439 THIS AM AT WHICH TIME PT WAS ASLEEP, DENIED SYMPTOMS. HYPERACTIVE BOWEL TONES CONTINUE, ABD REMAINS SOFT NONTENDER TO PALP, PT DID HAVE SMALL DARK MAROON/BLACK LOOSE BOWEL MOVEMENT X 2 THIS SHIFT. GEENA FIGUEROA AND SCDS PLACED THIS SHIFT.
--- NOTE | 2020-01-07 08:00 | NUR ---
ASSUMED CARE BEDSIDE REPORT RECIEVED. PT AWAKENS TO VERBAL STIMULI EASILY. PT IS ALERT AND ORIENTED. PT VOICE IS SOFT, BUT ANSWERERS QUESTIONS APPROPRIATELY. PT DENIES PAIN OR DISCOMFORT. VITAL SIGNS STABLE. PT ON ROOM AIR. HR IS IN THE 70'S WITH PACER SPIKES NOTED ON MONITOR. PT WITH SURGICAL SITE INCISIONS NOTED TO LEFT SHOULDER/CHEST AND MIDLINE CHEST. PT USING URINAL TO VOID WITH MINIMAL ASSISTANCE. PT WITH DARK TARRY BM'S ON NOC SHIFT. NO BM OR ACUTE CARLA BLOOD NOTED AT THIS TIME. NO FAMILY AT BEDSIDE. NS INFUSING TKO. WILL CONTINUE TO MONITOR.
--- NOTE | 2020-01-07 09:00 | NUR ---
DR ELIANA MONROY AT BEDSIDE TO EVALUATE PT. DISCUSSED PLAN OF CARE WITH PT AND THIS RN AT BEDSIDE. PLANS TO TRANSFER PT TO ANOTHER FACILITY DUE TO NO GI DOC COVERAGE AT THIS TIME. DR MONROY TO INITIATE TRANSFER ORDERS. WILL CONTINUE TO MONITOR.
--- NOTE | 2020-01-07 12:46 | NUR ---
Pal Care f/u visit to pt I met earlier in the week. He remembers me from both ICU and PCU. He shared some of the events of the past 48 hours and that he is anticipating being transferred to another hospital today. I asked if he had completed an advanced directive at either [facility] or [facility] and pt replied that he had. We do not have a copy of that here. I confirmed with him that his is his surrogate decision maker in the event he is unable to communicate with us. I also confirmed his wishes to be a full code at this time. I assured him that his current orders were consistent with his wishes. Pt is very pale and frail appearing. He is alert and oriented. He appears depressed but was able to smile during our conversation also. He needed to void and I assisted him with using a urinal in bed. He voided 400 cc lt yellow urine. Noted this on the board and informed his RN. Pt reports feeling hungry but is aware he is NPO at this time. I wished pt well and a safe journey with transport and care in another facility. He wanted to know where he was going. I advised him Drs were attempting to find a facility with counsel services available to him. Pt verbalized understanding.
--- NOTE | 2020-01-07 14:46 | NUR ---
TRANSFER TO [facility] REPORT CALLED TO RADHA AMANDA AT [facility] IN [place]. ALL QUESTIONS ANSWERED. PT TAKEN TO [facility]. ALL PT BELONGINGS SENT WITH PT SPOUSE. PT IS ALERT AND VITAL SIGNS STABLE UPON PT LEAVING THE UNIT. PT LEFT THE UNIT AT 1445.
== END 2020-01-07 14:49 | disposition short-term general hospital (02) | DRG 292 ==
LOC: ER 17:27 → ERHOLD 17:28 → ICUW 17:28 → ICUE 01-04 12:19 → PCU 01-04 12:19 → ICUW 01-04 12:20 → PCU 01-04 18:23 → ICUE 01-06 06:28
PROVIDERS: Emergency Medicine; Internal Medicine; Nurse Practitioner Acute Care; ADMIT Internal Medicine
PROC: 30233N1 Transfusion of Nonautologous Red Blood Cells into Peripheral Vein, Percutaneous Approach (ICD-10-PCS; principal; 2020-01-06)
PROC: 30233K1 Transfusion of Nonautologous Frozen Plasma into Peripheral Vein, Percutaneous Approach (ICD-10-PCS; 2020-01-06)
DX: I11.0 Hypertensive heart disease with heart failure (principal); D62 Acute posthemorrhagic anemia; R57.9 Shock, unspecified; E78.00 Pure hypercholesterolemia, unspecified; I50.33 Acute on chronic diastolic (congestive) heart failure; Z95.0 Presence of cardiac pacemaker; Z95.2 Presence of prosthetic heart valve; Z79.01 Long term (current) use of anticoagulants; I48.91 Unspecified atrial fibrillation
CPT/HCPCS: 36415; 36430; 36600; 70450; 71045; 71250; 74176; 80048; 80053; 80076; 80162; 82140; 82247; 82248; 82803; 83010; 83605; 83615; 83880; 84484; 85014; 85018; 85025; 85027; 85045; 85384; 85610; 86850; 86880; 86900; 86901; 86923; 93005; 93010; 93306; 93971; 96374; 96376; 97110; 97162; 99285-25; A9270; A9270-GY; C9113; G0378; J1940; J2405; J3430; J7050; P9016; P9059; U0003

== ENCOUNTER 2023-04-01 09:51 | Emergency (ER) | payer OTHER ==
[~2023-04-01] VITALS: Ht 172.7 cm; Wt 61.2 kg
[~2023-04-01 09:51] MED LIST changes: +ATOR80 PO; +Aspirin EC81 MG PO; +DILT120ERA PO; +DOCU100 PO; +FURO40 PO; +Hair, Skin & N1 EACH PO; +MECL25 PO; +MIRALAX17 GM PO; +POTCHL20ER PO; +VITAMIN B122500 MC1 PO; +VITAMIN D350 MC3 PO; +VITB2; +Vitamin D2000 UNIT PO
[2023-04-01 10:04] VITALS: BP 141/68
== END 2023-04-01 12:02 | disposition home or self-care (01) ==
LOC: ER 09:51
DX: B34.9 Viral infection, unspecified (principal)
CPT/HCPCS: 99283

== ENCOUNTER 2023-04-04 17:50 | Emergency (ER) | payer OTHER ==
[~2023-04-04] VITALS: Ht 172.7 cm; Wt 61.2 kg
[2023-04-04 18:58] LABS: BASOPHILS ABSOLUTE AUTO 0.03 K/mm3 (0.00-0.23); BASOPHILS PERCENT AUTO 0 % (0-2); EOSINOPHILS ABSOLUTE AUTO 0.04 K/mm3 (0.00-0.68); EOSINOPHILS PERCENT AUTO 1 % (0-6); Hematocrit 37.9 % (37.0-53.0); Hemoglobin 13.1 g/dL (13.5-17.5); IMMATURE GRAN ABSOLUTE AUTO 0.06 K/mm3 (0.00-0.10); IMMATURE GRAN PERCENT AUTO 1 % (0-1); LYMPHOCYTES ABSOLUTE AUTO 1.34 K/mm3 (0.84-5.20); LYMPHOCYTES PERCENT AUTO 15 % (21-46); MONOCYTES ABSOLUTE AUTO 0.88 K/mm3 (0.16-1.47); MONOCYTES PERCENT AUTO 10 % (4-13); Mean Corpuscular HGB 32.6 pg (26.0-34.0); Mean Corpuscular HGB Conc 34.6 g/dL (31.5-36.5); Mean Corpuscular Volume 94 fL (80-100); Mean Platelet Volume 10.8 fL (9.1-12.4); NEUTROPHILS ABSOLUTE AUTO 6.45 K/mm3 (1.96-9.15); NEUTROPHILS PERCENT AUTO 73 % (41-73); Platelet Count 127 K/mm3 (150-400); RDW Coefficient Variation 13.7 % (11.7-14.2); RDW Standard Deviation 47.4 fL (35.1-46.3); Red Blood Cell Count 4.02 M/mm3 (4.30-5.90)
[2023-04-04 19:16] LABS: Albumin, Blood 2.9 g/dL (3.4-5.0); Albumin/Globulin Ratio 0.7 (0.8-1.8); Bilirubin, Total 0.6 mg/dL (0.1-1.0); Bun/Creatinine Ratio 20.1 (12.0-20.0); Calcium, Blood 8.6 mg/dL (8.5-10.1); Creatinine, Blood 0.95 mg/dL (0.60-1.20); Total Protein, Blood 6.9 g/dL (6.4-8.2)
[2023-04-04 19:23] LABS: Adenovirus Not Detected (NOT DETECT); Bordetella pertussis Not Detected (NOT DETECT); Chlamydophila pneumoniae Not Detected (NOT DETECT); Coronavirus 229E Not Detected (NOT DETECT); Coronavirus HKU1 Not Detected (NOT DETECT); Coronavirus NL63 Not Detected (NOT DETECT); Coronavirus OC43 Not Detected (NOT DETECT); Human Metapneumovirus Not Detected (NOT DETECT); Human Rhinovirus/Enterovirus Not Detected (NOT DETECT); Influenza A/2009-H1 Not Detected (NOT DETECT); Influenza A/H1 Not Detected (NOT DETECT); Influenza A/H3 Not Detected (NOT DETECT); Influenza B Not Detected (NOT DETECT); Mycoplasma pneumoniae Not Detected (NOT DETECT); Parainfluenza Virus 1 Not Detected (NOT DETECT); Parainfluenza Virus 2 Not Detected (NOT DETECT); Parainfluenza Virus 3 Not Detected (NOT DETECT); Parainfluenza Virus 4 Not Detected (NOT DETECT); Respiratory Syncytial Virus Not Detected (NOT DETECT); SARS-Cov-2 (COVID-19), BioFire Not Detected (NOT DETECT)
[2023-04-04 20:30] VITALS: BP 134/81
[2023-04-04] MEDS ORDERED: AMOCLA875 PO (20:33)
[2023-04-04 20:58] LABS: Source, Urine Clean Catch
[2023-04-04 21:01] LABS: Appearance, Urine Clear (Clear); Bilirubin, Urine Neg (Neg); Blood, Urine 2+ (Neg); Color, Urine Yellow (P-Yellow); Glucose Qualitative, Urine Neg (Neg); Ketones, Urine Neg (Neg); Leukocyte Esterase, Urine Neg (Neg); Nitrite, Urine Neg (Neg); Protein, Urine 3+ (Neg); Specific Gravity, Urine 1.015 (1.003-1.022); Urobilinogen, Urine NORM (Normal)
[2023-04-04 21:10] LABS: Red Blood Cells, Urine 0-2 /hpf (0-2); White Blood Cells, Urine 0-2 /hpf (0-5)
[2023-04-04 21:11] LABS: Amorphous Light (0-Heavy)
[2023-04-04 21:12] LABS: Bacteria Rare /hpf; Squamous Epithelial Cells Not Seen /hpf (Few)
== END 2023-04-04 20:51 | disposition home or self-care (01) ==
LOC: ER 17:50
PROVIDERS: Physician Assistant
DX: J40 Bronchitis, not specified as acute or chronic (principal); Z88.2 Allergy status to sulfonamides; Z88.1 Allergy status to other antibiotic agents; Z88.8 Allergy status to other drugs, medicaments and biological substances; Z79.899 Other long term (current) drug therapy; Z79.01 Long term (current) use of anticoagulants; Z95.2 Presence of prosthetic heart valve; Z95.0 Presence of cardiac pacemaker
CPT/HCPCS: 0202U; 36415; 71046; 80053; 81001; 83605; 85025; 93005; 93010

== ENCOUNTER 2023-04-07 19:17 | Inpatient (IN) | payer OTHER ==
[~2023-04-07] VITALS: Ht 172.7 cm; Wt 63.9 kg
[~2023-04-07 19:17] MED LIST changes: +AMOCLA875 PO
[2023-04-07] MEDS ORDERED: CENTRUM SILVER1 EAC2 PO (22:35)
[2023-04-07 23:56] LABS: Source, Urine Clean Catch
[2023-04-07 23:57] LABS: International Normalized Ratio 2.96; Prothrombin Time Results 29.2 Sec (9.7-11.5)
[2023-04-08 00:03] LABS: Bilirubin, Urine Neg (Neg); Blood, Urine Neg (Neg); Glucose Qualitative, Urine Neg (Neg); Ketones, Urine Neg (Neg); Leukocyte Esterase, Urine Neg (Neg); Nitrite, Urine Neg (Neg); Protein, Urine Neg (Neg); Specific Gravity, Urine 1.015 (1.003-1.022); Urobilinogen, Urine NORM (Normal)
[2023-04-08 00:04] VITALS: BP 121/57
[2023-04-08 00:39] LABS: Appearance, Urine Hazy (Clear); Bacteria Few /hpf; Color, Urine Yellow (P-Yellow); Red Blood Cells, Urine 0-2 /hpf (0-2); Squamous Epithelial Cells Not Seen /hpf (Few); White Blood Cells, Urine 0-2 /hpf (0-5)
[2023-04-08 00:40] LABS: Amorphous Light (0-Heavy)
[2023-04-08 03:17] VITALS: BP 123/71
[2023-04-08] MEDS ORDERED: THERA-D2000 UNIT PO (03:42)
[2023-04-08] MEDS ORDERED: VITAMIN B122500 MC1 PO (03:42)
[2023-04-08] MEDS ORDERED: VITB2 PO (03:43)
[2023-04-08] MEDS ORDERED: CENTRUM SILVER1 EAC2 PO (03:43)
[2023-04-08] MEDS ORDERED: MECL25 PO (03:44)
[2023-04-08] MEDS ORDERED: MIRALAX17 GM PO (03:46)
[2023-04-08] MEDS ORDERED: SELENIUM SULFIDE TOP (03:47)
[2023-04-08] MEDS ORDERED: SALICYLIC ACID TOP (03:48)
[2023-04-08] MEDS ORDERED: SIME80CH PO (03:49)
[2023-04-08] MEDS ORDERED: DILT180 PO (03:51)
[2023-04-08] MEDS ORDERED: HYDROCORTISONE TOP (03:51)
[2023-04-08] MEDS ORDERED: ARTHRITIS PAIN150 GM TOP (03:52)
[2023-04-08] MEDS ORDERED: AMOCLA875 PO (03:53)
[2023-04-08 05:21] LABS: BASOPHILS ABSOLUTE AUTO 0.02 K/mm3 (0.00-0.23); BASOPHILS PERCENT AUTO 0 % (0-2); EOSINOPHILS ABSOLUTE AUTO 0.19 K/mm3 (0.00-0.68); EOSINOPHILS PERCENT AUTO 2 % (0-6); Hematocrit 34.3 % (37.0-53.0); Hemoglobin 11.8 g/dL (13.5-17.5); IMMATURE GRAN ABSOLUTE AUTO 0.06 K/mm3 (0.00-0.10); IMMATURE GRAN PERCENT AUTO 1 % (0-1); LYMPHOCYTES ABSOLUTE AUTO 1.56 K/mm3 (0.84-5.20); LYMPHOCYTES PERCENT AUTO 18 % (21-46); MONOCYTES ABSOLUTE AUTO 0.93 K/mm3 (0.16-1.47); MONOCYTES PERCENT AUTO 11 % (4-13); Mean Corpuscular HGB 32.8 pg (26.0-34.0); Mean Corpuscular HGB Conc 34.4 g/dL (31.5-36.5); Mean Corpuscular Volume 95 fL (80-100); Mean Platelet Volume 9.4 fL (9.1-12.4); NEUTROPHILS ABSOLUTE AUTO 5.95 K/mm3 (1.96-9.15); NEUTROPHILS PERCENT AUTO 68 % (41-73); Platelet Count 263 K/mm3 (150-400); RDW Standard Deviation 49.1 fL (35.1-46.3); White Blood Cell Count 8.71 K/mm3 (4.00-11.30)
--- NOTE | 2023-04-08 05:30 | NUR ---
SHIFT SUMMARY PT ARRIVED FROM ED AT ABOUT 2350. PT AND ORIENTED TO ROOM. NO C/O PAIN. PT VERBALIZED RUQ VISION IMPAIRED D/T "FIREWORK" LIKE LIGHTS IN HIS EYES. NO OTHER DEFICITS NOTED. A&OX4 AND PLEASANT. AT BEDSIDE T/O NIGHT. BED IN LOWEST POSITION AND CALL LIGHT IN REACH.
[2023-04-08 06:51] LABS: Albumin, Blood 2.6 g/dL (3.4-5.0); Albumin/Globulin Ratio 0.8 (0.8-1.8); Bilirubin, Total 0.5 mg/dL (0.1-1.0); Bun/Creatinine Ratio 15.9 (12.0-20.0); Calcium, Blood 8.5 mg/dL (8.5-10.1); Creatinine, Blood 0.94 mg/dL (0.60-1.20); Globulin, Blood 3.4 g/dL (2.2-4.0)
[2023-04-08 07:09] LABS: International Normalized Ratio 2.85; Prothrombin Time Results 28.2 Sec (9.7-11.5)
[2023-04-08 07:22] VITALS: BP 135/73
--- NOTE | 2023-04-08 18:03 | NUR ---
DAYSHIFT SUMMARY Patient alert & oriented x3, pleasant and cooperative. Calls appropriately. Patient SBA for safety, steady gait, no assistive devices used. Carotid duplex done, result normal. ECHO done this afternoon, results pending. Start baby aspirin started today. Plan to transfer to [facility] for higher level of care, will transfer when bed avaliable. VSS. Will continue plan of care.
[2023-04-08 20:51] VITALS: BP 135/68
[2023-04-09 03:40] VITALS: BP 134/72
[2023-04-09 06:08] LABS: Hemoglobin 12.8 g/dL (13.5-17.5); Mean Corpuscular HGB 32.2 pg (26.0-34.0); Mean Corpuscular HGB Conc 33.7 g/dL (31.5-36.5); Mean Corpuscular Volume 96 fL (80-100); Mean Platelet Volume 9.5 fL (9.1-12.4); Platelet Count 328 K/mm3 (150-400); RDW Coefficient Variation 13.9 % (11.7-14.2); RDW Standard Deviation 49.4 fL (35.1-46.3); Red Blood Cell Count 3.97 M/mm3 (4.30-5.90)
[2023-04-09 06:21] LABS: International Normalized Ratio 2.81; Prothrombin Time Results 27.8 Sec (9.7-11.5)
--- NOTE | 2023-04-09 06:32 | NUR ---
SHIFT SUMMARY PT A&OX4 AND PLEASANT. NO ACUTE CHANGES OVERNIGHT. NO C/O PAIN. PT REPORTS NO IMPROVEMENT IN VISION. PT USES URINAL AT BEDSIDE INDEPENDENTLY. IN ROOM AND ASSISTS WITH PT CARE. VSS. CALLS APPROPRIATLY. BED IN LOWEST POSITION AND CALL LIGHT IN REACH.
[2023-04-09 06:38] LABS: Albumin, Blood 2.8 g/dL (3.4-5.0); Albumin/Globulin Ratio 0.8 (0.8-1.8); Bilirubin, Total 0.6 mg/dL (0.1-1.0); Bun/Creatinine Ratio 17.1 (12.0-20.0); Calcium, Blood 8.5 mg/dL (8.5-10.1); Creatinine, Blood 1.17 mg/dL (0.60-1.20); Globulin, Blood 3.7 g/dL (2.2-4.0); Potassium, Blood 4.4 mmol/L (3.5-5.5); Total Protein, Blood 6.5 g/dL (6.4-8.2)
[2023-04-09 08:02] VITALS: BP 122/65
[2023-04-09 16:06] VITALS: BP 109/66
--- NOTE | 2023-04-09 17:11 | NUR ---
SHIFT SUMMARY PT AXO, PLEASANT AND COOPERATIVE WITH CARE. UP AD CODY IN ROOM WITH SPOUSE PRESENT. PT AND SPOUSE STATE THAT THEY FEEL SAFE AMBULATING AND WERE EDUCATED ON FALL PREVENTION. VSS. PT REPORTS VISUAL DEFICITS UNCHANGED FROM PRIOR SHIFT. CT ORDERED, AWAITING AT THIS TIME. BED IN LOW POSITION, CALL LIGHT WITHIN REACH. PT DENIES PAIN, SOB AND NV.
[2023-04-09 19:41] VITALS: BP 106/62
--- NOTE | 2023-04-10 03:17 | NUR ---
SHIFT SUMMARY PT PLEASANT, A&O X 4. PT GIVEN MIRALAX WITH PM MED PASS DUE TO REPORT OF NO BM X 3 DAYS. NO RESULTS TONIGHT. TELE PACED AT 60. PT SLEEPING IN ROOM WITH PT THROUGH THE NIGHT. PT SLEPT THROUGH THE NIGHT WITH NO ACUTE CHANGES. 04/10/23 IVY OCHOA RN
[2023-04-10 04:37] VITALS: BP 133/75
[2023-04-10 05:32] LABS: International Normalized Ratio 3.42; Prothrombin Time Results 33.5 Sec (9.7-11.5)
[2023-04-10 07:28] VITALS: BP 126/68
[2023-04-10] MEDS ORDERED: ELIQUIS5 M2 PO (11:05)
--- NOTE | 2023-04-10 14:46 | NUR ---
DISCHARGE SUMMARY PT AXO, PLEASANT AND COOPERATIVE WITH CARE. DISCHARGED TO HOME. PT LEFT ROOM VIA WHEELCHAIR WITH SPOUSE AND THIS NURSE ESCORT OUT TO CAR JUST PRIOR TO THIS NOTE. PT EDUCATED ON ALL DISCHARGE INSTRUCTIONS, ALL QUESTIONS ANSWERED. IV DC'D AND BELONGINGS RETURNED. PT AGREES TO TAKE MEDICATIONS PRESCRIBED AND TO FOLLOW UP WITH PCP ON 04/23/23 AT 1400.
== END 2023-04-10 14:28 | disposition home health service (06) | DRG 65 ==
LOC: ER 19:17 → MEDS 19:18
PROVIDERS: Internal Medicine; ADMIT Internal Medicine
DX: I63.9 Cerebral infarction, unspecified (principal); I48.19 Other persistent atrial fibrillation; I10 Essential (primary) hypertension; F12.90 Cannabis use, unspecified, uncomplicated; R29.701 NIHSS score 1; E78.00 Pure hypercholesterolemia, unspecified; Z88.8 Allergy status to other drugs, medicaments and biological substances; Z88.2 Allergy status to sulfonamides; Z88.1 Allergy status to other antibiotic agents; Z79.899 Other long term (current) drug therapy; Z95.2 Presence of prosthetic heart valve; Z79.01 Long term (current) use of anticoagulants; Z79.2 Long term (current) use of antibiotics; Z87.19 Personal history of other diseases of the digestive system; Z90.89 Acquired absence of other organs; Z98.890 Other specified postprocedural states; Z95.0 Presence of cardiac pacemaker
CPT/HCPCS: 36415; 70450; 80053; 81001; 83880; 85025; 85027; 85610; 93005; 93010; 93306; 93880; 97112; 97116; 97162; 97165; 99285-25; A9270; G0378

== ENCOUNTER → 2023-09-08 | Outpatient (CLI) | payer OTHER ==
[~2023-09-08] MED LIST changes: +ARTHRITIS PAIN150 GM TOP; +CENTRUM SILVER1 EAC2 PO; +DILT180 PO; +ELIQUIS5 M2 PO; +HYDROCORTISONE TOP; +SALICYLIC ACID TOP; +SELENIUM SULFIDE TOP; +SIME80CH PO; +VITB2 PO
[2023-09-08 11:38] LABS: BASOPHILS ABSOLUTE AUTO 0.02 K/mm3 (0.00-0.23); BASOPHILS PERCENT AUTO 0 % (0-2); EOSINOPHILS ABSOLUTE AUTO 0.24 K/mm3 (0.00-0.68); EOSINOPHILS PERCENT AUTO 4 % (0-6); Hematocrit 43.7 % (37.0-53.0); Hemoglobin 14.8 g/dL (13.5-17.5); IMMATURE GRAN ABSOLUTE AUTO 0.02 K/mm3 (0.00-0.10); IMMATURE GRAN PERCENT AUTO 0 % (0-1); LYMPHOCYTES ABSOLUTE AUTO 1.44 K/mm3 (0.84-5.20); LYMPHOCYTES PERCENT AUTO 22 % (21-46); MONOCYTES ABSOLUTE AUTO 0.64 K/mm3 (0.16-1.47); MONOCYTES PERCENT AUTO 10 % (4-13); Mean Corpuscular HGB 32.7 pg (26.0-34.0); Mean Corpuscular HGB Conc 33.9 g/dL (31.5-36.5); Mean Corpuscular Volume 97 fL (80-100); NEUTROPHILS ABSOLUTE AUTO 4.15 K/mm3 (1.96-9.15); NEUTROPHILS PERCENT AUTO 64 % (41-73); Platelet Count 216 K/mm3 (150-400); RDW Coefficient Variation 13.4 % (11.7-14.2); RDW Standard Deviation 47.7 fL (35.1-46.3); Red Blood Cell Count 4.53 M/mm3 (4.30-5.90); White Blood Cell Count 6.51 K/mm3 (4.00-11.30)
[2023-09-08 12:44] LABS: Alanine Aminotransfer (ALT/SGP 28 U/L (12-78); Albumin/Globulin Ratio 1.1 (0.8-1.8); Alk Phos 89 U/L (50-136); Anion Gap 7 mmol/L (3-11); Aspartate Aminotrans (AST/SGOT 25 U/L (12-37); Bilirubin, Total 0.4 mg/dL (0.1-1.0); Blood Urea Nitrogen 21 mg/dL (8-24); Bun/Creatinine Ratio 19.6 (12.0-20.0); CHOL/HDL RATIO 1.8; CO2, Blood 29 mmol/L (21-32); Calcium, Blood 8.6 mg/dL (8.5-10.1); Chloride, Blood 106 mmol/L (98-108); Cholesterol 150 mg/dL (50-200); Creatinine, Blood 1.07 mg/dL (0.60-1.20); Globulin, Blood 3.6 g/dL (2.2-4.0); Glomerular Filtration Rate 69 (60-); Glucose, Blood 100 mg/dL (70-99); HDL Cholesterol 82 mg/dL (>39); LDL/HDL RATIO 0.7; Low Density Lipoprotein Chol 59 mg/dL (0-110); Sodium, Blood 138 mmol/L (136-145); Total Protein, Blood 7.6 g/dL (6.4-8.2); Triglycerides 45 mg/dL (30-160); Very Low Density Lipoprot Chol 9 mg/dL (6-32)
== END | disposition home or self-care (01) ==
LOC: LAB SHORT 09:31
PROVIDERS: Student in an Organized Health Care Education/Training Program
DX: Z12.5 Encounter for screening for malignant neoplasm of prostate (principal); I63.9 Cerebral infarction, unspecified; I48.0 Paroxysmal atrial fibrillation; E78.2 Mixed hyperlipidemia; L57.0 Actinic keratosis; R42 Dizziness and giddiness; Z80.8 Family history of malignant neoplasm of other organs or systems
CPT/HCPCS: 80053; 80061; 84443; 85025; G0103

== ENCOUNTER → 2024-12-12 | Outpatient (CLI) | payer OTHER ==
[2024-12-12 20:20] LABS: BASOPHILS ABSOLUTE AUTO 0.04 K/mm3 (0.00-0.23); BASOPHILS PERCENT AUTO 1 % (0-2); EOSINOPHILS ABSOLUTE AUTO 0.17 K/mm3 (0.00-0.68); EOSINOPHILS PERCENT AUTO 2 % (0-6); Hematocrit 40.9 % (37.0-53.0); Hemoglobin 13.6 g/dL (13.5-17.5); IMMATURE GRAN ABSOLUTE AUTO 0.03 K/mm3 (0.00-0.10); IMMATURE GRAN PERCENT AUTO 0 % (0-1); LYMPHOCYTES ABSOLUTE AUTO 1.38 K/mm3 (0.84-5.20); LYMPHOCYTES PERCENT AUTO 18 % (21-46); MONOCYTES ABSOLUTE AUTO 0.70 K/mm3 (0.16-1.47); MONOCYTES PERCENT AUTO 9 % (4-13); Mean Corpuscular HGB Conc 33.3 g/dL (31.5-36.5); Mean Corpuscular Volume 99 fL (80-100); NEUTROPHILS ABSOLUTE AUTO 5.47 K/mm3 (1.96-9.15); NEUTROPHILS PERCENT AUTO 70 % (41-73); NRBC ABSOLUTE 0.00 K/mm3 (0.00-0.02); NRBC Auto 0.0 /100 WBC (0.0-0.2); Platelet Count 194 K/mm3 (150-400); RDW Coefficient Variation 13.9 % (11.7-14.2); RDW Standard Deviation 50.8 fL (35.1-46.3)
[2024-12-12 22:54] LABS: Alanine Aminotransfer (ALT/SGP 31 U/L (12-78); Albumin, Blood 4.0 g/dL (3.4-5.0); Albumin/Globulin Ratio 1.2 (0.8-1.8); Anion Gap 9 mmol/L (3-11); Aspartate Aminotrans (AST/SGOT 29 U/L (12-37); Bilirubin, Total 0.7 mg/dL (0.1-1.0); Blood Urea Nitrogen 21 mg/dL (8-24); CHOL/HDL RATIO 1.7; CO2, Blood 27 mmol/L (21-32); Calcium, Blood 8.9 mg/dL (8.5-10.1); Chloride, Blood 106 mmol/L (98-108); Cholesterol 157 mg/dL (50-200); Creatinine, Blood 0.99 mg/dL (0.60-1.20); Globulin, Blood 3.2 g/dL (2.2-4.0); Glucose, Blood 83 mg/dL (70-99); HDL Cholesterol 94 mg/dL (>39); LDL/HDL RATIO 0.6; Low Density Lipoprotein Chol 55 mg/dL (0-110); Potassium, Blood 4.0 mmol/L (3.5-5.5); Prostate Specific Antigen 2.940 ng/mL (0.000-4.000); Sodium, Blood 138 mmol/L (136-145); Total Protein, Blood 7.2 g/dL (6.4-8.2); Triglycerides 41 mg/dL (30-160); Very Low Density Lipoprot Chol 8 mg/dL (6-32)
== END ==
LOC: LAB SHORT 20:14 → LAB 20:14
PROVIDERS: Student in an Organized Health Care Education/Training Program
DX: E78.2 Mixed hyperlipidemia (principal); I48.0 Paroxysmal atrial fibrillation
CPT/HCPCS: 80053; 80061; 85025; G0103